=== PATIENT | male | born 1990 | race Hispanic/Latino ===

== ENCOUNTER 2017-02-19 23:29 | Emergency (ER) | payer MEDICAID, OTHER ==
[2017-02-19 23:42] VITALS: BMI 31.4
--- NOTE | 2017-02-20 | ED PDOC ---
Arrival/HPI - General Time Seen by Provider: 02/19/17 23:44 Historian: Patient - History of Present Illness Narrative History of Present Illness (Text): 02/19/17 23:52 Anthony Alonso is a 26 year old male, whose past medical history includes bipolar disorder, who presents to the ED complaining of a syncopal episode tonight. Patient states he was leaning over to drink from a water fountain while at work tonight when he passed out and fell to the floor. Patient states he hit his head and complaining of headache. Patient reports he also experienced palpitations. Patient denies any fever, chills, chest pain, shortness of breath , nausea, vomiting, diarrhea, urinary symptoms, back pain, neck pain, dizziness , or any other complaints. PMD: Dr. Octavia Morales Time/Duration: Prior to Arrival Symptom Onset: Sudden Symptom Course: Unchanged Activities at Onset: Rest, Light Context: Work Past Medical History - Provider Review Nursing Documentation Reviewed: Yes - Infectious Disease Hx of Infectious Diseases: None - Tetanus Immunization Tetanus Immunization: Unknown - Cardiac Hx Cardiac Disorders: No - Pulmonary Hx Respiratory Disorders: No - Neurological Hx Neurological Disorder: No - HEENT Hx HEENT Disorder: No - Renal Hx Renal Disorder: No - Endocrine/Metabolic Hx Endocrine Disorders: No - Hematological/Oncological Hx Blood Disorders: No - Integumentary Hx Dermatological Disorder: No - Musculoskeletal/Rheumatological Hx Musculoskeletal Disorders: No - Gastrointestinal Hx Gastrointestinal Disorders: No - Genitourinary/Gynecological Hx Genitourinary Disorders: No - Psychiatric Hx Psychophysiologic Disorder: Yes Hx Bipolar Disorder: Yes Hx Substance Use: No - Anesthesia Hx Anesthesia: No Hx Anesthesia Reactions: No Hx Malignant Hyperthermia: No Family/Social History - Physician Review Nursing Documentation Reviewed: Yes Family/Social History: Unknown Family HX Smoking Status: Never Smoked Hx Alcohol Use: No Hx Substance Use: No Allergies/Home Meds Allergies/Adverse Reactions: Allergies No Known Allergies Allergy (Verified 02/21/17 01:17) Review of Systems - Physician Review All systems were reviewed & negative as marked: Yes - Review of Systems Constitutional: Normal. absent: Fevers Eyes: Normal ENT: Normal Respiratory: Normal. absent: SOB, Cough Cardiovascular: Palpitations, Syncope Gastrointestinal: Normal. absent: Abdominal Pain, Diarrhea, Nausea, Vomiting Genitourinary Male: Normal. absent: Dysuria, Frequency, Hematuria, Urinary Output Changes Musculoskeletal: Normal. absent: Back Pain, Neck Pain Skin: Normal. absent: Rash Neurological: Headache. absent: Dizziness Endocrine: Normal Hemo/Lymphatic: Normal Psychiatric: Normal Physical Exam Vital Signs Reviewed: Yes Vital Signs Temp Pulse Resp BP Pulse Ox 02/20/17 04:19 66 18 137/78 99 02/20/17 03:00 68 18 134/77 99 02/20/17 01:30 70 18 135/80 99 02/19/17 23:30 98.6 F 66 20 140/82 100 Temperature: Afebrile Blood Pressure: Normal Pulse: Regular Respiratory Rate: Normal Appearance: Positive for: Well-Appearing, Non-Toxic, Comfortable Pain Distress: None Mental Status: Positive for: Alert and Oriented X 3 - Systems Exam Head: Present: Atraumatic, Normocephalic Pupils: Present: PERRL Extroacular Muscles: Present: EOMI Conjunctiva: Present: Normal Mouth: Present: Moist Mucous Membranes Neck: Present: Normal Range of Motion Respiratory/Chest: Present: Clear to Auscultation, Good Air Exchange. No: Respiratory Distress, Accessory Muscle Use Cardiovascular: Present: Regular Rate and Rhythm, Normal S1, S2. No: Murmurs Abdomen: Present: Normal Bowel Sounds. No: Tenderness, Distention, Peritoneal Signs Back: Present: Normal Inspection Upper Extremity: Present: Normal Inspection. No: Cyanosis, Edema Lower Extremity: Present: Normal Inspection. No: Edema Neurological: Present: GCS=15, CN II-XII Intact, Speech Normal Skin: Present: Warm, Dry, Normal Color. No: Rashes Psychiatric: Present: Alert, Oriented x 3, Normal Insight, Normal Concentration Medical Decision Making ED Course and Treatment: 02/19/17 23:52 Impression: 26 year old male presents s/p syncopal episode with palpitations and headache. Differential Diagnosis included but are not limited to: syncope Plan: -- CT Head w/o contrast -- EKG -- Labs, cardiac enzymes -- Reassess and disposition Prior Visits: Notes and results from previous visits were reviewed. On 09/02/2016, pt was seen in the Emergency department for depression and suicidal ideation. Pt was admitted for further psychiatric evaluation. Progress Notes: 02/19/17 23:59 Reviewed EKG, NSR at 67 bpm. Sinus arrhythmia. Possible left atrial enlargement. 02/20/17 01:23 Reviewed radiology, CT Head shows: Brain: No hemorrhage. No significant white matter disease. No edema. Ventricles: No hydrocephalus. Bones: Skull is intact. Sinuses: No acute sinusitis. Mastoid air cells: No mastoid effusion. IMPRESSION: No CT evidence of acute intracranial abnormality. 02/20/17 03:51 Reviewed Chest X-ray, shows no acute processes. 02/20/17 04:00 Case discussed with medical unit secretary sales correspondent, who is aware and agrees with plan. 02/20/17 04:19 Discussed results and plan with pt, pt was offered hospital admission for further evaluation and monitoring. Pt states he does not wish to stay and will leave against medical advice. Explained to the patient that choosing to do so may result in permanent bodily harm or . I have discussed at great length that without further evaluation and monitoring there may be unforeseen circumstances and/or deterioration causing permanent bodily harm or as a result of their choice. The patient is alert, oriented, and shows the mental capacity to make clear decisions regarding the patients health care at this time. The patient continues to wish to leave against medical advice. In light of the patients decision to leave against medical advice, patient is aware of the importance to following up as instructed. The patient has been advised that they should return to the emergency room immediately if they change their mind at any time, or if their condition begins to change or worsen in any way.. - Lab Interpretations Lab Results: 02/20/17 00:05 02/20/17 00:05 Lab Results 02/20/17 00:05: PT 11.9 H, INR 1.10 H, APTT 28.2 02/20/17 00:05: WBC 7.9 D, RBC 4.77, Hgb 14.1, Hct 41.8 L, MCV 87.6, MCH 29.6, MCHC 33.7, RDW 13.3, Plt Count 195, MPV 9.9 02/20/17 00:05: Sodium 142, Potassium 3.9, Chloride 103, Carbon Dioxide 26, Anion Gap 17, BUN 19, Creatinine 0.8, Est GFR ( Amer) > 60, Est GFR (Non- Af Amer) > 60, Random Glucose 84, Calcium 9.4, Total Bilirubin 1.3, AST 30, ALT 32, Alkaline Phosphatase 45, Lactate Dehydrogenase 433, Total Creatine Kinase 151, Troponin I < 0.01, Total Protein 7.0, Albumin 4.1, Globulin 2.9, Albumin/ Globulin Ratio 1.4 I have reviewed the lab results: Yes - RAD Interpretation Radiology Orders: 02/19/17 23:54 HEAD W/O CONTRAST [CT] Stat 02/20/17 03:14 CHEST PORTABLE [RAD] Stat Sales Audit Clerk: Radiologist - EKG Interpretation Interpreted by ED Physician: Yes Type: 12 lead EKG - Medication Orders Current Medication Orders: Discontinued Medications Acetaminophen (Tylenol 325mg Tab) Confirm Administered Dose 975 mg .ROUTE .STK- MED ONE Stop: 02/20/17 01:40 Last Admin: 02/20/17 02:14 Dose: Famotidine (Pepcid) 20 mg PO BID BRO - Scribe Statement The provider has reviewed the documentation as recorded by the Ai Car Provider Scribe Attestation: All medical record entries made by the Pilaribbrandy were at my direction and personally dictated by me. I have reviewed the chart and agree that the record accurately reflects my personal performance of the history, physical exam, medical decision making, and the department course for this patient. I have also personally directed, reviewed, and agree with the discharge instructions and disposition. Disposition/Present on Arrival - Present on Arrival Any Indicators Present on Arrival: No History of DVT/PE: No History of Uncontrolled Diabetes: No Urinary Catheter: No History Surgical Site Infection Following: None - Disposition Have Diagnosis and Disposition been Completed?: Yes Diagnosis: Syncope Disposition: AGAINST MEDICAL ADVICE Disposition Time: 04:17 Patient Problems: Current Active Problems Problem Status Onset Bipolar 1 disorder Acute Condition: STABLE Discharge Instructions (ExitCare): Syncope (ED) Referrals: Jeff Morales MD [Primary Care Provider] - Follow up with primary
[2017-02-20 00:25] LABS: HEMATOCRIT 41.8 % (42.0-52.0); MEAN CELL VOLUME 87.6 fL (80.0-105.0); MEAN CORPUSCULAR HEMOGLOBIN 29.6 pg (25.0-35.0); MEAN CORPUSCULAR HGB CONC 33.7 g/dl (31.0-37.0); MEAN PLATELET VOLUME 9.9 fl (7.0-11.0); RED CELL DISTRIBUTION WIDTH 13.3 % (11.5-14.5); WHITE BLOOD COUNT 7.9 10^3/ul (4.5-11.0)
[2017-02-20 00:33] LABS: INR 1.1 (0.93-1.08); PARTIAL THROMBOPLASTIN TIME 28.2 Seconds (23.7-30.8)
[2017-02-20 00:35] LABS: ALB/GLOB RATIO 1.4 (1.1-1.8); ALKALINE PHOSPHATASE 45 U/L (38-133); ALT/SGPT 32 U/L (7-56); AST/SGOT 30 U/L (15-59); BILIRUBIN,TOTAL 1.3 mg/dL (0.2-1.3); BLOOD UREA NITROGEN 19 mg/dL (7-21); CALCIUM 9.4 mg/dL (8.4-10.5); CARBON DIOXIDE 26 mmol/L (21-33); CHLORIDE 103 mmol/L (98-107); GFR AFRICAN-AMERICAN > 60; GLUCOSE,RANDOM 84 mg/dL (70-110); POTASSIUM 3.9 mmol/L (3.6-5.0); SODIUM 142 mmol/L (132-148)
[2017-02-20 00:45] VITALS: TEMP 98.6
--- NOTE | 2017-02-20 01:19 | CT ---
EXAM: CT Head Without Intravenous Contrast CLINICAL HISTORY: 26 years old, male; Signs and symptoms; Syncope and collapse TECHNIQUE: Axial computed tomography images of the head/brain without intravenous contrast. This CT exam was performed using one or more of the following dose reduction techniques: automated exposure control, adjustment of the mA and/or kV according to patient size, and/or use of iterative reconstruction technique. COMPARISON: No relevant prior studies available. FINDINGS: Brain: No hemorrhage. No significant white matter disease. No edema. Ventricles: No hydrocephalus. Bones: Skull is intact. Sinuses: No acute sinusitis. Mastoid air cells: No mastoid effusion. IMPRESSION: No CT evidence of acute intracranial abnormality.
[2017-02-20 01:30] LABS: TROPONIN I < 0.01 ng/mL
[2017-02-20 03:00] VITALS: RESP 18; O2SAT 99
[2017-02-20 04:21] VITALS: BP 137/78; PULSE 66
--- NOTE | 2017-02-20 09:42 | RAD ---
HISTORY: syncope COMPARISON: 09/02/2016 FINDINGS: LUNGS: No active pulmonary disease. PLEURA: No significant pleural effusion identified, no pneumothorax apparent. CARDIOVASCULAR: Normal. OSSEOUS STRUCTURES: No significant abnormalities. VISUALIZED UPPER ABDOMEN: Normal. OTHER FINDINGS: None. IMPRESSION: No active disease.
--- NOTE | 2017-02-20 18:38 | CARD ---
APPROVED REPORT EKG Measurement Heart [id number] <Conclusion> Normal sinus rhythm with sinus arrhythmia Possible Left atrial enlargement Borderline ECG
== END 2017-02-20 04:21 | disposition left against medical advice (07) ==
LOC: ED 23:29
DX: R55 Syncope and collapse (principal)

== ENCOUNTER 2017-02-20 17:36 | Inpatient (IN) | payer MEDICAID ==
[2017-02-20 17:36] VITALS: BMI 31.4
--- NOTE | 2017-02-20 18:17 | ED PDOC ---
Arrival/HPI - General Chief Complaint: Psychiatric Evaluation Time Seen by Provider: 02/20/17 17:55 Historian: Patient - History of Present Illness Narrative History of Present Illness (Text): 02/20/17 17:58 Anthony Alonso is a 26 year old male, whose past medical history includes bipolar disorder, who presents to the Emergency department complaining of passing out yesterday and hitting his knee, mainly because he was not eating well and was dehydrated. Patient currently reports that he feels confused and cannot think clearly. He also notes having auditory hallucinations and homicidal ideation. Patient denies any chest pain, shortness of breath, headache, nausea, vomiting, diarrhea, fever, chills, cough, head injury or other complaints. PMD: Dr. Morales Psychiatrist: Dr. Rogers Kennedy Time/Duration: 24 hours Symptom Onset: Sudden Symptom Course: Unchanged Activities at Onset: Light Modifying Factors (Text): None Associated Symptoms (Text): Auditory hallucinations and homicidal ideation Past Medical History - Provider Review Nursing Documentation Reviewed: Yes - Infectious Disease Hx of Infectious Diseases: None - Tetanus Immunization Tetanus Immunization: Unknown - Cardiac Hx Cardiac Disorders: No - Pulmonary Hx Respiratory Disorders: No - Neurological Hx Neurological Disorder: No - HEENT Hx HEENT Disorder: No - Renal Hx Renal Disorder: No - Endocrine/Metabolic Hx Endocrine Disorders: No - Hematological/Oncological Hx Blood Disorders: No - Integumentary Hx Dermatological Disorder: No - Musculoskeletal/Rheumatological Hx Musculoskeletal Disorders: No - Gastrointestinal Hx Gastrointestinal Disorders: No - Genitourinary/Gynecological Hx Genitourinary Disorders: No - Psychiatric Hx Psychophysiologic Disorder: Yes Hx Bipolar Disorder: Yes Hx Substance Use: No - Anesthesia Hx Anesthesia: No Hx Anesthesia Reactions: No Hx Malignant Hyperthermia: No Family/Social History - Physician Review Nursing Documentation Reviewed: Yes Family/Social History: Unknown Family HX Smoking Status: Never Smoked Hx Alcohol Use: No Hx Substance Use: No Allergies/Home Meds Allergies/Adverse Reactions: Allergies No Known Allergies Allergy (Verified 02/20/17 17:53) Review of Systems - Physician Review All systems were reviewed & negative as marked: Yes - Review of Systems Constitutional: Fatigue, Other (dehydration ). absent: Fevers Respiratory: absent: SOB Cardiovascular: absent: Chest Pain Psychiatric: Other (homicidal ideation and auditory hallucinations) Physical Exam Vital Signs Temp Pulse Resp BP Pulse Ox 02/20/17 17:56 98.7 F 80 20 145/90 100 Temperature: Afebrile Blood Pressure: Normal Pulse: Regular Respiratory Rate: Normal Appearance: Positive for: Well-Appearing, Non-Toxic, Comfortable Pain Distress: None Mental Status: Positive for: Alert and Oriented X 3 - Systems Exam Head: Present: Atraumatic, Normocephalic Pupils: Present: PERRL Extroacular Muscles: Present: EOMI Conjunctiva: Present: Normal Mouth: Present: Moist Mucous Membranes Neck: Present: Normal Range of Motion Respiratory/Chest: Present: Clear to Auscultation, Good Air Exchange. No: Respiratory Distress, Accessory Muscle Use Cardiovascular: Present: Regular Rate and Rhythm, Normal S1, S2. No: Murmurs Abdomen: Present: Normal Bowel Sounds. No: Tenderness, Distention, Peritoneal Signs Back: Present: Normal Inspection Upper Extremity: Present: Normal Inspection. No: Cyanosis, Edema Lower Extremity: Present: Normal Inspection. No: Edema Neurological: Present: GCS=15, CN II-XII Intact, Speech Normal Skin: Present: Warm, Dry, Normal Color. No: Rashes Psychiatric: Present: Alert, Oriented x 3, Homicidal Ideation, Hallucinations ( auditory ) Medical Decision Making ED Course and Treatment: 02/20/17 17:58 Impression: 26 year old male with confusion and auditory hallucinations. Differential Diagnosis included but are not limited to: psych - auditory hallucinations Plan: -- EKG -- Labs -- Urinalysis -- Reassess and disposition Prior Visits: Notes and results from previous visits were reviewed. Patient's Chest X-ray and CT scan were negative from 02/19/2017. Progress Notes: 02/20/2017 Patient is medically cleared for psych evaluation. 02/20/17 EKG: Ordered, reviewed, and independently interpreted the EKG. Rate : 82 BPM Rhythm : NSR Interpretation : No ST-segment elevations or depressions, no T-wave inversions, normal intervals. Comparison : No previous EKG for comparison. 02/20/17 22:44 Case discussed with POOJA Weller who states she will admit to Dr. Waldron for r/o Bipolar. - Lab Interpretations Lab Results: 02/20/17 18:56 02/20/17 18:56 Lab Results 02/20/17 19:00: Urine Opiates Screen Negative, Urine Methadone Screen Negative, Ur Barbiturates Screen Negative, Ur Phencyclidine Scrn Negative, Ur Amphetamines Screen Negative, U Benzodiazepines Scrn Negative, U Oth Cocaine Metabols Negative, U Cannabinoids Screen Negative 02/20/17 19:00: Urine Color Yellow, Urine Appearance Sl cloudy, Urine pH 6.0, Ur Specific [place] >= 1.030, Urine Protein Negative, Urine Glucose (UA) Negative, Urine Ketones 40 H, Urine Blood Moderate H, Urine Nitrate Negative, Urine Bilirubin Negative, Urine Urobilinogen 1.0 H, Ur Leukocyte Esterase Negative, Urine RBC 10 - 15, Urine WBC 1 - 3, Ur Epithelial Cells 0 - 2 02/20/17 18:56: Alcohol, Quantitative < 10 02/20/17 18:56: Salicylates < 1 L, Acetaminophen < 10.0 L 02/20/17 18:56: Sodium 142, Potassium 4.3, Chloride 102, Carbon Dioxide 27, Anion Gap 17, BUN 22 H, Creatinine 1.1, Est GFR ( Amer) > 60, Est GFR ( Non-Af Amer) > 60, Random Glucose 83, Calcium 9.8, Total Bilirubin 1.4 H, AST 37 , ALT 34, Alkaline Phosphatase 49, Total Protein 7.3, Albumin 4.4, Globulin 2.9 , Albumin/Globulin Ratio 1.5 02/20/17 18:56: WBC 7.1, RBC 4.92, Hgb 14.7, Hct 42.9, MCV 87.2, MCH 29.9, MCHC 34.3, RDW 13.1, Plt Count 203, MPV 9.6, Gran % 54.5, Lymph % (Auto) 34.2, [place] % (Auto) 10.6 H, Eos % (Auto) 0.4 L, Baso % (Auto) 0.3, Gran # 3.85, Lymph # 2.4 , [place] # 0.8 H, Eos # 0.0, Baso # 0.02 I have reviewed the lab results: Yes Interpretation: All labs normal - EKG Interpretation Interpreted by ED Physician: Yes Type: 12 lead EKG - Scribe Statement The provider has reviewed the documentation as recorded by the Scribe 02/20/2017 Oksana Mejia Provider Scribe Attestation: All medical record entries made by the Scribe were at my direction and personally dictated by me. I have reviewed the chart and agree that the record accurately reflects my personal performance of the history, physical exam, medical decision making, and the department course for this patient. I have also personally directed, reviewed, and agree with the discharge instructions and disposition. Disposition/Present on Arrival - Present on Arrival Any Indicators Present on Arrival: No History of DVT/PE: No History of Uncontrolled Diabetes: No Urinary Catheter: No History of Decub. Ulcer: No History Surgical Site Infection Following: None - Disposition Have Diagnosis and Disposition been Completed?: Yes Diagnosis: Bipolar 1 disorder Disposition: HOSPITALIZED Disposition Time: 22:45 Patient Plan: Admission Condition: FAIR Referrals: Jeff Morales MD [Primary Care Provider] - Follow up with primary Forms: [employer] (Serbian)
[2017-02-20 19:13] LABS: BASO # 0.02 K/mm3 (0.0-2.0); BASO % 0.3 % (0.0-3.0); EOS % 0.4 % (1.5-5.0); GRAN # 3.85 (1.4-6.5); GRAN % 54.5 % (50.0-68.0); HEMOGLOBIN 14.7 gm/dL (14.0-18.0); LYMPH # 2.4 (1.2-3.4); LYMPH % 34.2 % (22.0-35.0); MEAN CELL VOLUME 87.2 fL (80.0-105.0); MEAN CORPUSCULAR HEMOGLOBIN 29.9 pg (25.0-35.0); MEAN CORPUSCULAR HGB CONC 34.3 g/dl (31.0-37.0); MEAN PLATELET VOLUME 9.6 fl (7.0-11.0); MONO # 0.8 (0.1-0.6); MONO % 10.6 % (1.0-6.0); PLATELET COUNT 203 10^3/uL (120.0-450.0); RBC 4.92 10^6/uL (3.5-6.1); RED CELL DISTRIBUTION WIDTH 13.1 % (11.5-14.5); WHITE BLOOD COUNT 7.1 10^3/ul (4.5-11.0)
[2017-02-20 19:15] LABS: URINE BILIRUBIN NEGATIVE (NEGATIVE); URINE BLOOD MODERATE (NEGATIVE); URINE GLUCOSE (UA) NEGATIVE (NEGATIVE); URINE LEUKOCYTE ESTERASE NEGATIVE Leu/uL (NEGATIVE); URINE NITRATE NEGATIVE (NEGATIVE); URINE PROTEIN NEGATIVE mg/dL (<30 mg/dL)
[2017-02-20 19:17] LABS: URINE APPEARANCE SL CLOUDY (CLEAR); URINE COLOR YELLOW (YELLOW)
[2017-02-20 19:21] LABS: ALB/GLOB RATIO 1.5 (1.1-1.8); ALBUMIN 4.4 g/dL (3.0-4.8); ALT/SGPT 34 U/L (7-56); AST/SGOT 37 U/L (15-59); BLOOD UREA NITROGEN 22 mg/dL (7-21); CALCIUM 9.8 mg/dL (8.4-10.5); GFR AFRICAN-AMERICAN > 60; GFR NON-AFRICAN AMERICAN > 60
[2017-02-20 19:23] LABS: SALICYLATE < 1 mg/dL (2.0-20.0)
[2017-02-20 19:24] LABS: URINE EPITHELIAL CELLS 0 - 2 /hpf (0-5)
[2017-02-20 19:27] LABS: ACETAMINOPHEN < 10.0 ug/ml (10.0-20.0)
[2017-02-20 19:34] LABS: BARBITURATES, UR NEGATIVE (NEGATIVE); BENZODIAZEPINES, UR NEGATIVE (NEGATIVE); OPIATES, UR NEGATIVE (NEGATIVE); PHENCYCLIDINE, UR NEGATIVE (NEGATIVE)
[2017-02-21] MEDS ORDERED: Alum-Mag Hydrox-Simethicone Susp (30 mL) PO PRN (01:02)
[2017-02-21] MEDS ORDERED: Magnesium Hydroxide Susp 30 ml UD PO PRN (01:02)
--- NOTE | 2017-02-21 02:59 | PCM.BM ---
<Mally Apodaca - Last Filed: 02/21/17 02:56> Treatment Plan Problems - Problems identified on initial assessmt homicidal ideation Date Initiated: 02/21/17 Time Initiated: 00:15 Assessment reference: NA Status: Active hallucinations Date Initiated: 02/21/17 Time Initiated: 00:15 Assessment reference: NA Status: Active suicidal ideation Date Initiated: 02/21/17 Time Initiated: 00:15 Assessment reference: NA Status: Active Treatment assets and liabiliti Patient Assests: self-reliant, ADL independent, strong jesus - Milieu Protocol Maintain good personal hygiene: daily Encourage regular showers, daily Remind patient to perform daily oral care, daily Assist patient to perform ADL's Maintain personal safety: every shift Educate patient to report safety concerns to staff, every shift Monitor environment for contraband/sharps Medication safety: Monitor for expected outcome, potential side effects: every shift, Assess barriers to learning: every shift, Assess readiness for medication education: every shift Discharge/Continuing Care - Education Needs Education Needs: Patient Medication, Patient Coping Skills, Patient Activities of Daily Living - Discharge Discharge Criteria: Free of Suicidal thoughts, Free of Homicidal thoughts <Nazario Waldron - Last Filed: 02/22/17 15:54> - Diagnosis (1) Bipolar 1 disorder Status: Chronic (2) Depression Status: Chronic (3) MDD (major depressive disorder) Status: Chronic
[2017-02-21 04:31] VITALS: O2SAT 100
[2017-02-21 08:33] LABS: HDL CHOLESTEROL 36 mg/dL (29-60); LDL CHOLESTEROL 87 mg/dL (0-129)
--- NOTE | 2017-02-21 08:57 | CP.PCM.CON ---
<Alexa Restrepo - Last Filed: 02/21/17 15:06> History of Present Illness - History of Present Illness History of Present Illness: Internal Medicine consult note for Dr. Kaye Restrepo, PGY-1 Pt S & E at bedside. 26M w/PMH sig for exertional asthma, bipolar d/o consulted for medical evaluation. 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 Pt reports some nausea and dry heaving overnight. Pt has regular diet ordered, has nausea after PO ingestion. BM's normal. Pt reports chronic insomnia. Denies actual emesis, fevers, chills, SOB, CP, palpitations, constipation, diarrhea, other complaints. PMH: exertional asthma, bipolar d/o PSH: Denies All: Denies SH: Denies ETOH, tobacco, or illicit drug use Review of Systems - Review of Systems All systems: reviewed and no additional remarkable complaints except - Constitutional Constitutional: absent: Chills, Fever - EENT Eyes: absent: Change in Vision Nose/Mouth/Throat: absent: Sore Throat - Cardiovascular Cardiovascular: absent: Chest Pain, Palpitations - Gastrointestinal Gastrointestinal: Nausea, Vomiting (dry heaving). absent: Abdominal Pain, Constipation, Diarrhea, Hematemesis - Genitourinary Genitourinary: absent: Change in Urinary Stream, Dysuria - Musculoskeletal Musculoskeletal: absent: Tingling - Neurological Neurological: Syncope - Psychiatric Psychiatric: Abnormal Sleep Pattern (baseline) Past Patient History - Infectious Disease Hx of Infectious Diseases: None - Tetanus Immunizations Tetanus Immunization: Unknown - Past Social History Smoking Status: Never Smoked - CARDIAC Hx Cardiac Disorders: No - PULMONARY Hx Respiratory Disorders: No - NEUROLOGICAL Hx Neurological Disorder: No - HEENT Hx HEENT Problems: No - RENAL Hx Chronic Kidney Disease: No - ENDOCRINE/METABOLIC Hx Endocrine Disorders: No - HEMATOLOGICAL/ONCOLOGICAL Hx Blood Disorders: No - INTEGUMENTARY Hx Dermatological Problems: No - MUSCULOSKELETAL/RHEUMATOLOGICAL Hx Musculoskeletal Disorders: No - GASTROINTESTINAL Hx Gastrointestinal Disorders: No - GENITOURINARY/GYNECOLOGICAL Hx Genitourinary Disorders: No - PSYCHIATRIC Hx Bipolar Disorder: Yes Hx Substance Use: No - SURGICAL HISTORY Hx Surgeries: Yes ("ingrown toenail") - ANESTHESIA Hx Anesthesia: No Hx Anesthesia Reactions: No Hx Malignant Hyperthermia: No Meds Allergies/Adverse Reactions: Allergies Allergy/AdvReac Type Severity Reaction Status Date / Time No Known Allergies Allergy Verified 02/21/17 01:17 - Medications Medications: Current Medications Acetaminophen (Tylenol 325mg Tab) 650 mg PO Q4 PRN PRN Reason: Pain, moderate (4-7) Al Hydrox/Mg Hydrox/Simethicone (Maalox Plus 30 Ml) 30 ml PO DAILY PRN PRN Reason: Upset Stomach Aripiprazole (Abilify) 5 mg PO HS BRO Bupropion HCl (Wellbutrin Xl) 150 mg PO DAILY BRO Divalproex Sodium (Depakote Dr(*Bid*)) 500 mg PO DAILY BRO PRN Reason: Protocol Divalproex Sodium (Depakote Dr(*Bid*)) 1,000 mg PO HS BRO Magnesium Hydroxide (Milk Of Magnesia) 30 ml PO DAILY PRN PRN Reason: Constipation Ondansetron HCl (Zofran Odt) 4 mg PO Q8H PRN PRN Reason: Nausea/Vomiting Physical Exam - Constitutional Appears: Non-toxic, No Acute Distress - Head Exam Head Exam: ATRAUMATIC, NORMAL INSPECTION, NORMOCEPHALIC - Eye Exam Eye Exam: EOMI, Normal appearance - ENT Exam ENT Exam: Mucous Membranes Moist, Normal Exam - Neck Exam Neck exam: Positive for: Full Rom, Normal Inspection - Respiratory Exam Respiratory Exam: Clear to Auscultation Bilateral, NORMAL BREATHING PATTERN - Cardiovascular Exam Cardiovascular Exam: REGULAR RHYTHM, +S1, +S2 - GI/Abdominal Exam GI & Abdominal Exam: Normal Bowel Sounds, Soft. absent: Distended, Tenderness - Extremities Exam Extremities exam: Positive for: full ROM, normal inspection - Neurological Exam Neurological exam: Alert, CN II-XII Intact, Normal Gait, Oriented x3 - Psychiatric Exam Psychiatric exam: Normal Affect, Normal Mood - Skin Skin Exam: Dry, Intact, Normal Color, Warm Results - Vital Signs Recent Vital Signs: Last Vital Signs Temp 97.5 F L 02/21/17 06:41 Pulse 60 02/21/17 06:41 Resp 16 02/21/17 06:41 BP 135/77 02/21/17 06:41 Pulse Ox 100 02/21/17 06:41 - Labs Result Diagrams: 02/20/17 18:56 02/20/17 18:56 Labs: Laboratory Results - last 24 hr 02/21/17 07:30 Fasting Glucose 89 Assessment & Plan - Assessment and Plan (Free Text) Assessment: 26M w/PMH sig for bipolar d/o and exertional asthma admitted for SI and hallucinations, medically stable. Plan: Nausea FU labs Zofran PRN Monitor Syncope FU orthostatics UA +ketones Encourage PO intake Exertional Asthma No symptoms at this time Monitor Bipolar d/o Cont mgmt as per psych Dispo: Will sign off Please re-consult as necessary. DW attending Kaye, PGY-1 - Date & Time Date: 02/21/17 Time: 07:45 <Trevor Saba - Last Filed: 02/21/17 15:26> Meds - Medications Medications: Current Medications Acetaminophen (Tylenol 325mg Tab) 650 mg PO Q4 PRN PRN Reason: Pain, moderate (4-7) Al Hydrox/Mg Hydrox/Simethicone (Maalox Plus 30 Ml) 30 ml PO DAILY PRN PRN Reason: Upset Stomach Aripiprazole (Abilify) 5 mg PO HS BRO Bupropion HCl (Wellbutrin Xl) 150 mg PO DAILY BRO Last Admin: 02/21/17 09:07 Dose: 150 mg Divalproex Sodium (Depakote Dr(*Bid*)) 500 mg PO DAILY BRO PRN Reason: Protocol Last Admin: 02/21/17 09:07 Dose: 500 mg Divalproex Sodium (Depakote Dr(*Bid*)) 1,000 mg PO HS BRO Famotidine (Pepcid) 40 mg PO HS BRO Magnesium Hydroxide (Milk Of Magnesia) 30 ml PO DAILY PRN PRN Reason: Constipation Ondansetron HCl (Zofran Odt) 4 mg PO Q8H PRN PRN Reason: Nausea/Vomiting Results - Vital Signs Recent Vital Signs: Last Vital Signs Temp 97.5 F L 02/21/17 06:41 Pulse 60 02/21/17 06:41 Resp 16 02/21/17 06:41 BP 135/77 02/21/17 06:41 Pulse Ox 100 02/21/17 06:41 - Labs Result Diagrams: 02/20/17 18:56 02/20/17 18:56 Labs: Laboratory Results - last 24 hr 02/21/17 02/21/17 02/21/17 07:30 07:30 07:30 Fasting Glucose Triglycerides 59 Cholesterol 134 LDL Cholesterol Direct 87 HDL Cholesterol 36 TSH 3rd Generation 0.9 Valproic Acid 23 L 02/21/17 07:30 Fasting Glucose 89 Triglycerides Cholesterol LDL Cholesterol Direct HDL Cholesterol TSH 3rd Generation Valproic Acid Attending/Attestation - Attestation I have personally seen and examined this patient.: Yes I have fully participated in the care of the patient.: Yes I have reviewed all pertinent clinical information: Yes Notes (Text): 02/21/17 15:24 attending note; Patient seen and examined with resident in psychiatric floor. Patient is a 26-year-old male admitted for bipolar disorder. Currently dizziness improved. Blood pressure is stable. Tolerating diet well. Ambulating fine. Nausea; Zofran when necessary ordered. Possible GERD; started on Pepcid. Patient denies any history of smoking , drug abuse, alcohol abuse. patient is medically stable. Please reconsult as needed. Advised to follow-up with PMD of choice upon discharge. 02/21/17 15:25
[2017-02-21] MEDS: buPROPion 150 mg/24 Hours XL Tab PO SCH (09:07)
[2017-02-21] MEDS: Divalproex 500 mg DR(BID formulation) PO SCH ×2 (09:07→21:37)
--- NOTE | 2017-02-21 09:54 | CARD ---
APPROVED REPORT EKG Measurement Heart [id number] <Conclusion> Normal sinus rhythm with sinus arrhythmia LVH by voltage, probably normal variant No change
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
[2017-02-22] MEDS: Divalproex 500 mg DR(BID formulation) PO SCH ×2 (08:50→21:12)
[2017-02-22] MEDS: buPROPion 150 mg/24 Hours XL Tab PO SCH (08:53)
--- NOTE | 2017-02-22 18:29 | PCM.PYCHPN ---
Psychiatric Progress Note - Psychiatric Progress Note Patient seen today, length of contact: 30 Patient Chief Complaint: Depression and anxiety Problems Identified/Issues Discussed: Patient reports that the lack of sleep for whatever reason properly [place] homicidal thoughts. Has had a prior history of bipolar disorder. Medical Problems: Exertional asthma Diagnostic Results: Denies hematuria. Etiology uncertain. Has elevated BUNs. DSM 5 Symptoms Update: Mood and affect significantly improved upon. Patient getting a decent night sleep Medication Change: No Medical Record Reviewed: Yes Mental Status Examination - Cognitive Function Orientation: Person, Place, Situation, Time Memory: Intact Attention: WNL Concentration: WNL Association: [facility] Fund of Knowledge: [facility] Decription of patient's judgement and insights: Meaningful - Mood Mood: Neutral - Affect Affect: Broad - Speech Speech: Appropriate - Formal Thought Process Formal Thought Process: No Impairment Psychotic Thoughts and Behaviors: Not presently - Suicidal Ideation Suicidal Ideation: No - Homicidal Ideation Homicidal Ideation: No Goal/Treatment Plan - Goal/Treatment Plan Progress Toward Problem(s) and Goals/Treatment Plan: Patient showing significant improvement. Not homicidal or suicidal. Slept well the night before. If improvement continues will discharge tomorrow
[2017-02-23 07:41] VITALS: BP 119/83; PULSE 60; RESP 20; TEMP 97.8
[2017-02-23] MEDS: buPROPion 150 mg/24 Hours XL Tab PO SCH (07:46)
[2017-02-23] MEDS: Divalproex 500 mg DR(BID formulation) PO SCH (07:46)
== END 2017-02-23 14:13 | disposition home or self-care (01) | DRG 430 ==
LOC: ED 17:36 → ERH 22:44 → PSYC 02-21 00:18
PROVIDERS: ADMIT Psychiatry & Neurology Addiction Medicine; ATTEND Psychiatry & Neurology Addiction Medicine
DX: F31.9 Bipolar disorder, unspecified (principal); J45.998 Other asthma

== ENCOUNTER 2017-03-05 22:26 | Emergency (ER) | payer MEDICAID ==
[2017-03-05 22:57] VITALS: BMI 29.0
[2017-03-05 23:46] LABS: URINE BILIRUBIN NEGATIVE (NEGATIVE); URINE BLOOD LARGE (NEGATIVE); URINE GLUCOSE (UA) NEGATIVE (NEGATIVE); URINE LEUKOCYTE ESTERASE NEGATIVE Leu/uL (NEGATIVE); URINE NITRATE NEGATIVE (NEGATIVE); URINE PROTEIN NEGATIVE mg/dL (<30 mg/dL)
[2017-03-05 23:47] LABS: BASO # 0.04 K/mm3 (0.0-2.0); BASO % 0.6 % (0.0-3.0); EOS # 0.1 (0.0-0.7); EOS % 0.9 % (1.5-5.0); GRAN # 2.81 (1.4-6.5); GRAN % 41.3 % (50.0-68.0); HEMOGLOBIN 13.1 g/dL (14.0-18.0); LYMPH # 3.1 (1.2-3.4); LYMPH % 45.6 % (22.0-35.0); MEAN CELL VOLUME 87.8 fl (80.0-105.0); MEAN CORPUSCULAR HEMOGLOBIN 29.6 pg (25.0-35.0); MEAN CORPUSCULAR HGB CONC 33.7 g/dl (31.0-37.0); MEAN PLATELET VOLUME 10.5 fl (7.0-11.0); MONO # 0.8 (0.1-0.6); MONO % 11.6 % (1.0-6.0); PLATELET COUNT 171 10^3/uL (120.0-450.0); RBC 4.43 10^6/uL (3.5-6.1); RED CELL DISTRIBUTION WIDTH 13.3 % (11.5-14.5); WHITE BLOOD COUNT 6.8 10^3/ul (4.5-11.0)
[2017-03-05 23:54] LABS: URINE APPEARANCE SL CLOUDY (CLEAR); URINE COLOR YELLOW (YELLOW)
[2017-03-06 00:01] LABS: SALICYLATE < 1 mg/dL (2.0-20.0)
[2017-03-06 00:03] LABS: URINE EPITHELIAL CELLS 0 - 2 /hpf (0-5); URINE RBC 15 - 20 /hpf (0-2); URINE WBC 0 - 2 /hpf (0-6)
[2017-03-06 00:04] LABS: ALB/GLOB RATIO 1.6 (1.1-1.8); ALBUMIN 3.9 g/dL (3.0-4.8); ALT/SGPT 40 U/L (7-56); AST/SGOT 38 U/L (15-59); BLOOD UREA NITROGEN 17 mg/dL (7-21); CALCIUM 8.9 mg/dL (8.4-10.5); GFR AFRICAN-AMERICAN > 60; GFR NON-AFRICAN AMERICAN > 60
[2017-03-06 00:11] LABS: BARBITURATES, UR NEGATIVE (NEGATIVE); BENZODIAZEPINES, UR NEGATIVE (NEGATIVE); OPIATES, UR NEGATIVE (NEGATIVE); PHENCYCLIDINE, UR NEGATIVE (NEGATIVE)
[2017-03-06 00:12] LABS: ACETAMINOPHEN < 10.0 ug/ml (10.0-20.0)
--- NOTE | 2017-03-06 00:15 | ED PDOC ---
Arrival/HPI - General Historian: Patient - History of Present Illness Time/Duration: Other (1 days) Symptom Onset: Gradual Symptom Course: Worsening <Tonia Multani - Last Filed: 03/06/17 01:40> <Yefri Howard - Last Filed: 03/06/17 05:30> - General Chief Complaint: Psychiatric Evaluation Time Seen by Provider: 03/05/17 22:32 - History of Present Illness Narrative History of Present Illness (Text): 03/06/17 00:12 26yr old male with a history of bipolar disorder presents today with HI. pt states he has been dealing with this feeling for a while but today it worsened. pt states that if he focuses his HI is focused only on the person he is talking to, otherwise he has thoughts to hurt everyone. pt denies cp or sob. no vomiting /diarrhea. no abdominal pain. no cp or sob. no other complaints. (Tonia Multani) Past Medical History - Provider Review Nursing Documentation Reviewed: Yes - Travel History Have you recently traveled outside US w/in the past 3 mons?: No - Infectious Disease Hx of Infectious Diseases: None - Tetanus Immunization Tetanus Immunization: Unknown - Cardiac Hx Cardiac Disorders: No - Pulmonary Hx Respiratory Disorders: No - Neurological Hx Neurological Disorder: No - HEENT Hx HEENT Disorder: No - Renal Hx Renal Disorder: No - Endocrine/Metabolic Hx Endocrine Disorders: No - Hematological/Oncological Hx Blood Disorders: No - Integumentary Hx Dermatological Disorder: No - Musculoskeletal/Rheumatological Hx Musculoskeletal Disorders: No - Gastrointestinal Hx Gastrointestinal Disorders: No - Genitourinary/Gynecological Hx Genitourinary Disorders: No - Psychiatric Hx Bipolar Disorder: Yes Hx Substance Use: No - Anesthesia Hx Anesthesia: No Hx Anesthesia Reactions: No Hx Malignant Hyperthermia: No <Tonia Multani - Last Filed: 03/06/17 01:40> Family/Social History - Physician Review Nursing Documentation Reviewed: Yes Family/Social History: Unknown Family HX Smoking Status: Never Smoked Hx Alcohol Use: No Hx Substance Use: No <Tonia Multani - Last Filed: 03/06/17 01:40> Allergies/Home Meds <Tonia Multani - Last Filed: 03/06/17 01:40> <Yefri Howard - Last Filed: 03/06/17 05:30> Allergies/Adverse Reactions: Allergies No Known Allergies Allergy (Verified 02/21/17 01:17) Review of Systems - Review of Systems Constitutional: absent: Fatigue, Fevers Respiratory: absent: SOB, Cough Cardiovascular: absent: Chest Pain, Palpitations Gastrointestinal: absent: Abdominal Pain, Nausea, Vomiting Genitourinary Male: absent: Dysuria Musculoskeletal: absent: Arthralgias Skin: absent: Rash, Pruritis Psychiatric: Other (HI). absent: Depression, Suicidal Ideation <Tonia Multani - Last Filed: 03/06/17 01:40> Physical Exam Vital Signs Reviewed: Yes Temperature: Afebrile Blood Pressure: Normal Pulse: Regular Respiratory Rate: Normal Appearance: Positive for: Well-Appearing, Non-Toxic, Comfortable Pain Distress: None Mental Status: Positive for: Alert and Oriented X 3 - Systems Exam Head: Present: Atraumatic Respiratory/Chest: Present: Clear to Auscultation Cardiovascular: Present: Regular Rate and Rhythm Abdomen: No: Tenderness Neurological: Present: GCS=15, Speech Normal Skin: Present: Warm, Dry Psychiatric: Present: Alert, Oriented x 3 <Tonia Multani - Last Filed: 03/06/17 01:40> Medical Decision Making - Lab Interpretations I have reviewed the lab results: Yes - EKG Interpretation Interpreted by ED Physician: Yes Type: 12 lead EKG <Tonia Multani - Last Filed: 03/06/17 01:40> - RAD Interpretation Drying Unit Felting Machine Operator: ED Physician <Yefri Howard - Last Filed: 03/06/17 05:30> ED Course and Treatment: 03/06/17 01:26 Patient is nontoxic well-appearing in no distress vital signs are stable. pt with bipolar disorder with HI. Pt placed on 1:1 CBC WNL CMP WNL Tylenol WNL Salicylate WNL Alcohol level WNL Urine drug screen wnl UA; wnl EKG: sinus bradycardia at [address] bpm. Sinus arrhythmia. No ST elevations. Normal axis. pt is medically cleared for PES evaluation Patient was seen and evaluated by PES screener: karla case signed out to dr. howard pending disposition. (Tonia Multani) 03/06/17 01:30 Case endorsed to me by JULIO CESAR Multani, pending disposition. 03/06/17 03:25 Pt seen and evaluated by PES screener Karla, who discussed case with psychiatrist contact lens blocker and cutter. Pt accepted for psych admission however there are no beds available. Pt to be transferred. 03/06/17 05:01 Pt accepted on transfer to [facility] for major depressive disorder with psychotic features by Dr. Christian, psychiatrist. (Yefri Howard) - Lab Interpretations Lab Results: 03/05/17 23:15 03/05/17 23:15 Lab Results 03/05/17 23:15: Alcohol, Quantitative < 10 03/05/17 23:15: Salicylates < 1 L, Acetaminophen < 10.0 L 03/05/17 23:15: Urine Opiates Screen Negative, Urine Methadone Screen Negative, Ur Barbiturates Screen Negative, Ur Phencyclidine Scrn Negative, Ur Amphetamines Screen Negative, U Benzodiazepines Scrn Negative, U Oth Cocaine Metabols Negative, U Cannabinoids Screen Negative 03/05/17 23:15: Sodium 138, Potassium 4.1, Chloride 103, Carbon Dioxide 27, Anion Gap 12, BUN 17, Creatinine 0.8, Est GFR ( Amer) > 60, Est GFR (Non- Af Amer) > 60, Random Glucose 90, Calcium 8.9, Total Bilirubin 1.0, AST 38, ALT 40, Alkaline Phosphatase 42, Total Protein 6.5, Albumin 3.9, Globulin 2.5, Albumin/Globulin Ratio 1.6 03/05/17 23:15: Urine Color Yellow, Urine Appearance Sl cloudy, Urine pH 6.0, Ur Specific [place] 1.010, Urine Protein Negative, Urine Glucose (UA) Negative, Urine Ketones Negative, Urine Blood Large H, Urine Nitrate Negative, Urine Bilirubin Negative, Urine Urobilinogen 1.0 H, Ur Leukocyte Esterase Negative, Urine RBC 15 - 20, Urine WBC 0 - 2, Ur Epithelial Cells 0 - 2 03/05/17 23:15: WBC 6.8, RBC 4.43, Hgb 13.1 L, Hct 38.9 L, MCV 87.8, MCH 29.6, MCHC 33.7, RDW 13.3, Plt Count 171, MPV 10.5, Gran % 41.3 L, Lymph % (Auto) 45.6 H, Morris % (Auto) 11.6 H, Eos % (Auto) 0.9 L, Baso % (Auto) 0.6, Gran # 2.81 , Lymph # 3.1, Morris # 0.8 H, Eos # 0.1, Baso # 0.04 - RAD Interpretation Narrative RAD Interpretations (Text): 03/06/17 03:30 CXR- No acute process (Yefri Howard) Radiology Orders: 03/05/17 23:03 CHEST PORTABLE [RAD] Stat - PA / POLE FRAME CONSTRUCTION WORKER / Resident Statement /DO has reviewed & agrees with the documentation as recorded. / has examined the patient and agrees with the treatment plan. <Yefri Howard - Last Filed: 03/06/17 05:30> Disposition/Present on Arrival - Present on Arrival Any Indicators Present on Arrival: No History of DVT/PE: No History of Uncontrolled Diabetes: No Urinary Catheter: No History of Decub. Ulcer: No History Surgical Site Infection Following: None <Tonia Multani - Last Filed: 03/06/17 01:40> - Present on Arrival Any Indicators Present on Arrival: No History of DVT/PE: No History of Uncontrolled Diabetes: No Urinary Catheter: No History of Decub. Ulcer: No History Surgical Site Infection Following: None - Disposition Have Diagnosis and Disposition been Completed?: Yes Disposition Time: 05:30 <Yefri Howard - Last Filed: 03/06/17 05:30> - Disposition Diagnosis: MDD (major depressive disorder) Disposition: Transfer [facility] Condition: STABLE Referrals: Jeff Morales MD [Primary Care Provider] - Follow up with primary Forms: treadalong ([place])
[2017-03-06 01:16] VITALS: RESP 18
[2017-03-06 01:50] VITALS: O2SAT 100
[2017-03-06 05:16] VITALS: BP 112/67; PULSE 51; TEMP 97.6
--- NOTE | 2017-03-06 07:55 | RAD ---
HISTORY: pes eval COMPARISON: 02/20/2017 FINDINGS: LUNGS: No active pulmonary disease. PLEURA: No significant pleural effusion identified, no pneumothorax apparent. CARDIOVASCULAR: Normal. OSSEOUS STRUCTURES: No significant abnormalities. VISUALIZED UPPER ABDOMEN: Normal. OTHER FINDINGS: None. IMPRESSION: No active disease. No significant interval change compared to the prior examination(s).
--- NOTE | 2017-03-06 16:00 | CARD ---
APPROVED REPORT EKG Measurement Heart [id number] <Conclusion> Sinus bradycardia with sinus arrhythmia Otherwise normal ECG
== END 2017-03-06 05:30 | disposition short-term general hospital (02) ==
LOC: ED 22:26
DX: F32.9 Major depressive disorder, single episode, unspecified (principal)

== ENCOUNTER 2018-10-19 18:17 | Emergency (ER) | payer MEDICAID ==
[2018-10-19 18:17] VITALS: BMI 29.1
[2018-10-19 18:34] VITALS: BP 138/79; PULSE 95; RESP 18; TEMP 98.7; O2SAT 97
== END 2018-10-19 19:09 | disposition left against medical advice (07) ==
LOC: ED 18:17
DX: Z02.89 Encounter for other administrative examinations (principal); R42 Dizziness and giddiness